=== PATIENT | male | born 1990 | race Caucasian/White ===

== ENCOUNTER 2022-01-01 09:17 | Emergency (ER) | payer MEDICAID ==
[~2022-01-01] VITALS: Ht 172.7 cm; Wt 106.5 kg
[2022-01-01 09:28] VITALS: BP 134/98
--- NOTE | 2022-01-01 09:45 | Diagnostic Imaging Report ---
Indication: Chest pain and cough PA and lateral views of the chest are obtained. COMPARISON: No previous study is available for comparison at this time. FINDINGS: Heart size and pulmonary vasculature are within normal limits, and the lungs are clear, bilaterally. IMPRESSION: Unremarkable chest. Dictated by: Dictated on workstation # [id number]
--- NOTE | 2022-01-01 09:57 | ED EENT ---
History of Present Illness General Chief Complaint: Oral/Throat Problems Stated Complaint: SORE THROAT Nursing Triage Note: Patient reports sore throat, congestion, cough, and right rib pain for 1 week. Source: patient History of Present Illness Date Seen by Provider: January 01, 2022 Time Seen by Provider: 09:19 Initial Comments 31-year-old male presenting with sore throat, cough, congestion for over a week. He states he does not have a primary care physician but plans to see Dr. Brar on Sunday. He states nothing was worse or different today but he came in with his girlfriend to be seen in the emergency department. He does smoke about half pack a day and is trying to quit. He is coughing up some thick green congestion. He denies having any fever or chills. He has not been seen in clinic for his symptoms before today. He denies any ill contacts Timing/Duration: gradual (over a week) Severity: moderate Location: throat Prearrival Treatment: no prearrival treatment Modifying Factors: Worse With Coughing Associated Symptoms: No change in hearing; cough; No drooling, No ear drainage, No facial pain/swelling, No fever, No malaise; nasal congestion/drainage; No poor fluid intake, No poor solids intake, No sinus infection; sore throat; No tooth pain, No voice change Allergies and Home Medications Allergies Coded Allergies: Sulfa (Sulfonamide Antibiotics) (Verified Allergy, Unknown, 01/01/22) Patient Home Medication List Home Medication List Reviewed: Yes Guaifenesin (Mucinex) 1,200 Mg Tab.er.12h, 1,200 MG PO Q12H Prescribed by: ASHLEY THOMSON on 01/01/22 1006 Prednisone (Prednisone) 20 Mg Tab, 40 MG PO DAILY Prescribed by: ASHLEY THOMSON on 01/01/22 1005 Review of Systems Review of Systems Constitutional: No chills, No fever Eyes: No Symptoms Reported Ears: No Symptoms Reported Nose: congestion, epistaxis (this morning), clear discharge; denies purulent discharge Mouth: no symptoms reported Throat: pain, swelling; denies neck stiffness; painful swallowing Respiratory: cough, phlegm (coughing up thick green mucus), short of breath Cardiovascular: no symptoms reported Gastrointestinal: no symptoms reported Musculoskeletal: other (right sided rib pain, general muscle body aching) Skin: No rash Neurological: Denies Headache Past Grnzanq-Uumyyy-Nshmwc Hx Patient Social History Tobacco Use?: Yes Substance use?: No Alcohol Use?: No Pt feels they are or have been: No Past Medical History Surgery/Hospitalization HX: Depression/Anxiety Physical Exam Vital Signs Vital Signs - First Documented 01/01/22 09:28 Temp 36.5 Pulse 83 Resp 16 B/P (MAP) 134/98 (110) Pulse Ox 98 O2 Delivery Room Air Height, Weight, BMI Height: '" Weight: lbs. oz. kg; 35.00 BMI Method: General Appearance: WD/WN, no apparent distress Eyes: bilateral eye PERRL, bilateral eye EOMI Nose: other (nasal congestion) Mouth/Throat: pharynx swelling; No tonsillar exudate; tonsillar swelling, other (Erythema and mild swelling to the posterior pharynx without exudate) Neck: non-tender, full range of motion, supple, normal inspection Cardiovascular: normal peripheral pulses, regular rate, rhythm Respiratory: chest non-tender, lungs clear, normal breath sounds, no respiratory distress, no accessory muscle use Gastrointestinal: normal bowel sounds, non tender, soft, no pulsatile mass Neurologic/Psychiatric: alert, oriented x 3 Skin: normal color, warm/dry Progress/Results/Core Measures Results/Orders Lab Results Laboratory Tests Test 01/01/22 09:37 Range/Units Group A Streptococcus Screen NEGATIVE NEGATIVE My Orders Orders - ASHLEY THOMSON MD Rapid Strep A Screen (01/01/22 09:32) Chest Pa/Lat (2 View) (01/01/22 09:32) Prednisone Tablet (Deltasone Tablet) (01/01/22 10:04) Vital Signs/I&O 01/01/22 09:28 Temp 36.5 Pulse 83 Resp 16 B/P (MAP) 134/98 (110) Pulse Ox 98 O2 Delivery Room Air Blood Pressure Mean: 110 Progress Progress Note #1: Progress Note Obtain rapid strep swab and a chest x-ray. Since he does smoke he would be at increased risk of atypical lung infection. Progress Note #2: Progress Note Chest x-ray is clear without acute process. Rapid strep swab is negative. His girlfriend's rapid strep and COVID was negative on Sunday per the patient. Can offer him symptomatic treatment for his cough and sore throat. Check back with clinic for continued concerns or if not improving through next week. Diagnostic Imaging Diagonstic Imaging: Xray Plain Films/CT/US/NM/MRI: chest Comments [facility]. [place], [place] NAME: SHARYN HOLM [facility] REC#: [id number] PT STATUS: REG ER : 1990 PHYSICIAN: ASHLEY THOMSON MD ADMIT DATE: 01/01/22/ER FS Signed Date of Exam:01/01/22 CHEST PA/LAT (2 VIEW) Indication: Chest pain and cough PA and lateral views of the chest are obtained. COMPARISON: No previous study is available for comparison at this time. FINDINGS: Heart size and pulmonary vasculature are within normal limits, and the lungs are clear, bilaterally. IMPRESSION: Unremarkable chest. Dictated by: Dictated on workstation # [id number] Dict: 01/01/2243 Trans: 01/01/2244 [id number] Interpreted by: LISA EID MD Electronically signed by: LISA EID MD 01/01/2244 Reviewed: Reviewed by Me Departure Impression Primary Impression: Pharyngitis Qualified Codes: J02.9 - Acute pharyngitis, unspecified Additional Impressions: Upper respiratory infection with cough and congestion Tobacco use Disposition: HOME, SELF-CARE Condition: Stable Departure-Patient Inst. Decision time for Depature: 10:05 Referrals: ELZBIETA BRAR MD NO,LOCAL PHYSICIAN (PCP) Primary Care Physician Patient Instructions: Quitting Smoking ED, Sore Throat, Adult ED, Upper Respiratory Infection ED Add. Discharge Instructions: Stay well-hydrated and drink plenty of fluids. You can use steroid to help with cough and congestion. Uzon-zys-nazsche Mucinex would help loosen up any congestion and cough as well. If you are continuing to have symptoms and not improving then check back with the clinic this week. If your strep swab culture comes back positive for strep you will get a call in 2 to 3 days when the result comes back. All discharge instructions reviewed with patient and/or family. Voiced understanding. Scripts Guaifenesin (Mucinex) 1,200 Mg Tab.er.12h 1200 MG PO Q12H for Cough/Congestion for 7 Days, #14 TAB 0 Refills Prov: ASHLEY THOMSON MD 01/01/22 Prednisone (Prednisone) 20 Mg Tab 40 MG PO DAILY for Sore Throat/Cough for 4 Days, #8 TAB 0 Refills Prov: ASHLEY THOMSON MD 01/01/22 ASHLEY THOMSON MD January 01, 2022 09:57
[2022-01-01] MEDS ORDERED: predniSONE 20 MG TAB PO STA (10:04)
[2022-01-01] MEDS ORDERED: PRD20T PO (10:05)
[2022-01-01] MEDS ORDERED: GUAI120013 PO (10:06)
== END 2022-01-01 10:10 | disposition home or self-care (01) ==
LOC: EDUNIT# 09:17 → ER FS 09:19
DX: J02.9 Acute pharyngitis, unspecified (principal); J06.9 Acute upper respiratory infection, unspecified; F17.210 Nicotine dependence, cigarettes, uncomplicated; Z20.822 Contact with and (suspected) exposure to COVID-19
CPT/HCPCS: 71046; 87430